=== PATIENT | female | born 1990 | race Caucasian/White ===

== ENCOUNTER → 2017-05-04 | Outpatient (CLI) | payer OTHER ==
[2017-05-04 19:21] LABS: BASO # 0.1 10^3/uL (0.0-0.2); BASO % 0.5 % (0.0-1.0); EOS # 0.2 10^3/uL (0.0-0.50); HEMATOCRIT 42.1 % (36.0-47.0); HEMOGLOBIN 14.1 g/dl (12.0-16.0); IMMATURE GRANULOCYTE # 0.1 10^3/uL (0-0); IMMATURE GRANULOCYTE % 0.5 % (0-0); LYMPH # 2.6 10^3/uL (1.5-6.5); LYMPH % 23.9 % (24.0-44.0); MEAN CORPUSCULAR HEMOGLOBIN 29.4 pg (27.0-33.0); MEAN CORPUSCULAR HGB CONC 33.5 g/dl (32.0-36.5); MEAN CORPUSCULAR VOLUME 87.7 fl (80.0-96.0); MONO # 0.6 10^3/uL (0.0-0.8); NEUTROPHILS # 7.2 10^3/uL (1.8-7.7); NEUTROPHILS % 67.1 % (36.0-66.0); PLATELET COUNT, AUTOMATED 344 10^3/uL (150-450); RED CELL DISTRIBUTION WIDTH 12.7 % (11.5-14.5); WHITE BLOOD COUNT 10.7 10^3/uL (4.0-10.0)
[2017-05-04 23:19] LABS: CHLAMYDIA DNA AMPLIFICATION NEGATIVE (NEGATIVE); GC DNA AMPLIFICATION NEGATIVE (NEGATIVE)
[2017-05-06 10:33] LABS: RUBELLA IgG QUALITATIVE IMMUNE (IMMUNE)
[2017-05-06 11:02] LABS: HIV 1&2 SCREEN CENTAUR NEGATIVE (NEGATIVE)
[2017-05-06 11:02] LABS: HEPATITIS C VIRUS ABY INDEX 0.1 INDEX (<0.8)
[2017-05-06 12:31] LABS: HBsAg Prenatal NEGATIVE (NEGATIVE)
== END ==
LOC: M SMT 13:42
DX: Z34.81 Encounter for supervision of other normal pregnancy, first trimester (principal); Z3A.10 10 weeks gestation of pregnancy
CPT/HCPCS: 86762

== ENCOUNTER → 2017-06-29 | Outpatient (CLI) | payer OTHER | LOC: M SMT 08:29 | DX: Z34.82 Encounter for supervision of other normal pregnancy, second trimester (principal); Z3A.18 18 weeks gestation of pregnancy | CPT/HCPCS: 76811 ==

== ENCOUNTER → 2017-09-30 | Outpatient (REF) | payer OTHER | LOC: M LAB REF 17:05 | DX: Z34.82 Encounter for supervision of other normal pregnancy, second trimester (principal); Z3A.00 Weeks of gestation of pregnancy not specified ==

== ENCOUNTER 2017-10-03 14:27 | Outpatient (CLI) | payer OTHER | END 2017-10-03 15:20 | disposition home or self-care (01) | LOC: M LDO 14:27 | DX: O36.8130 Decreased fetal movements, third trimester, not applicable or unspecified (principal); Z87.440 Personal history of urinary (tract) infections; Z3A.31 31 weeks gestation of pregnancy | CPT/HCPCS: 59025 ==

== ENCOUNTER → 2017-11-09 | Outpatient (REF) | payer OTHER | LOC: M LAB REF 13:30 | DX: Z34.83 Encounter for supervision of other normal pregnancy, third trimester (principal) ==

== ENCOUNTER 2017-11-23 06:19 | Inpatient (IN) | payer OTHER ==
[2017-11-23 07:08] LABS: HEMATOCRIT 35.8 % (36.0-47.0); HEMOGLOBIN 11.4 g/dl (12.0-15.5); MEAN CORPUSCULAR HGB CONC 31.8 g/dl (32.0-36.5); MEAN CORPUSCULAR VOLUME 81.5 fl (80.0-96.0); PLATELET COUNT, AUTOMATED 352 10^3/uL (150-450); RED BLOOD COUNT 4.39 10^6/uL (4.00-5.40); RED CELL DISTRIBUTION WIDTH 15.1 % (11.5-14.5); WHITE BLOOD COUNT 13.8 10^3/uL (4.0-10.0)
[2017-11-23] MEDS: PENICILLIN G POTASSIUM IV 5 MU in D5W MINI-BAG PLUS 100 ML IV (08:07)
[2017-11-23] MEDS: LACTATED RINGER'S 1000 ML IV (08:07)
[2017-11-23] MEDS: miSOPROStol 50 MCG 1/2 TAB (S0191) SL (08:38)
[2017-11-23] MEDS: PENICILLIN G POTASSIUM IV 2.5 MU in APPROPRIATE DILUENT 1 EA IV ×2 (12:14→16:02)
[2017-11-23] MEDS: OXYTOCIN DRIP 30 UNITS in APPROPRIATE DILUENT 1 EA IV (13:35)
[2017-11-23] MEDS: LR 1,000 ML IV (16:39)
[2017-11-23] MEDS ORDERED: FENTANYL 2MCG/ML ROPIVACAINE 0.2% IN 0.9% NACL 200ML IVBAG As Ordered (16:58)
[2017-11-23] MEDS ORDERED: ePHEDrine SULFATE 25 MG/5 ML(5MG/ML) SYRINGE IV (18:00)
[2017-11-23] MEDS ORDERED: REFRIGERATOR IV KEYS XX (18:00)
[2017-11-23] MEDS ORDERED: diphenhydrAMINE INJ 50MG/ML VIAL (J1200) IV (18:00)
[2017-11-23] MEDS ORDERED: FENTANYL/ROPIVACAINE/NACL BAG 200 ML EPIDURAL (18:00)
[2017-11-23] MEDS ORDERED: EPIDURAL/PCA KEYS XX (18:00)
[2017-11-23] MEDS ORDERED: ONDANSETRON 4MG/2ML VIAL (J2405) IV (18:00)
[2017-11-23] MEDS ORDERED: EPIDURAL COMMENT XX (18:00)
[2017-11-23] MEDS ORDERED: NALOXONE INJ 0.4 MG/1 ML VIAL (J2310) IV (18:00)
[2017-11-23] MEDS ORDERED: RHOGAM 300 MCG (1500 IU) INJ (J2790) IM (19:30)
[2017-11-23] MEDS: METHYLERGONOVINE MALEATE 0.2 MG TAB PO (19:30)
[2017-11-23] MEDS ORDERED: MEASLES,MUMPS,RUBELLA VACCINE INJ (MMR-II) (90707) SC (19:30)
[2017-11-23] MEDS ORDERED: ANUSOL HC CREAM 30GM TOP (19:30)
[2017-11-23] MEDS ORDERED: DIBUCAINE 1% OINTMENT 30GM TOP (19:30)
[2017-11-23] MEDS ORDERED: MOM 30ML SUSPENSION UDC PO (19:30)
[2017-11-23] MEDS: DOCUSATE SODIUM 100 MG CAP PO (22:50)
[2017-11-24] MEDS: METHYLERGONOVINE MALEATE 0.2 MG TAB PO ×4 (03:42→18:49)
[2017-11-24] MEDS: IBUPROFEN 800 MG TAB PO ×2 (03:49→14:57)
[2017-11-24] MEDS: PRENATAL VITAMINS CHEWABLE TABLET PO (08:25)
[2017-11-24] MEDS: ACETAMINOPHEN 500 MG TAB PO ×2 (08:28→18:49)
== END 2017-11-24 20:58 | disposition home or self-care (01) | DRG 560 ==
LOC: M LDI 06:19 → M OBS 21:59
PROVIDERS: Advanced Practice Midwife
PROC: 10E0XZZ Delivery of Products of Conception, External Approach (ICD-10-PCS; principal; 2017-11-23)
PROC: 10907ZC Drainage of Amniotic Fluid, Therapeutic from Products of Conception, Via Natural or Artificial Opening (ICD-10-PCS; 2017-11-23)
PROC: 3E0P7GC Introduction of Other Therapeutic Substance into Female Reproductive, Via Natural or Artificial Opening (ICD-10-PCS; 2017-11-23)
DX: O99.824 Streptococcus B carrier state complicating childbirth (principal); Z3A.39 39 weeks gestation of pregnancy; O32.6XX0 Maternal care for compound presentation, not applicable or unspecified; Z37.0 Single live birth

== ENCOUNTER → 2019-12-20 | Outpatient (CLI) | payer OTHER ==
[~2019-12-20] MED LIST: MACR100C43 PO; MAPA500T2 PO; MOTR200T44 PO; No Historical Meds; PRENTAB9 PO; TUMS500C PO
[2019-12-20 15:55] LABS: BASO # 0.1 10^3/uL (0.0-0.2); BASO % 0.6 % (0.0-1.0); EOS # 0.2 10^3/uL (0.0-0.5); EOS % 1.9 % (0.0-3.0); HEMATOCRIT 43.1 % (36.0-47.0); HEMOGLOBIN 14.4 g/dl (12.0-15.5); LYMPH # 2.4 10^3/uL (1.5-5.0); LYMPH % 26.4 % (24.0-44.0); MEAN CORPUSCULAR HEMOGLOBIN 29.9 pg (27.0-33.0); MEAN CORPUSCULAR HGB CONC 33.4 g/dl (32.0-36.5); MEAN CORPUSCULAR VOLUME 89.6 fl (80.0-96.0); MONO # 0.5 10^3/uL (0.0-0.8); MONO % 5.4 % (0.0-5.0); NEUTROPHILS # 5.9 10^3/uL (1.5-8.5); NEUTROPHILS % 65.4 % (36.0-66.0); PLATELET COUNT, AUTOMATED 307 10^3/uL (150-450); RED BLOOD COUNT 4.81 10^6/uL (4.00-5.40)
[2019-12-20 17:27] LABS: HEPATITIS C VIRUS ABY INDEX 0.3 INDEX (<0.8); HIV 1&2 SCREEN CENTAUR NEGATIVE (NEGATIVE)
== END ==
LOC: M PLALAB 12:22
PROVIDERS: ATTEND Advanced Practice Midwife
DX: Z34.82 Encounter for supervision of other normal pregnancy, second trimester (principal)

== ENCOUNTER → 2019-12-22 | Outpatient (CLI) | payer OTHER ==
--- NOTE | 2020-01-17 13:52 | REP ---
FIRST TRIMESTER OBSTETRICAL ULTRASOUND CLINICAL: Dating and viability. TECHNIQUE: Transabdominal first trimester obstetrical ultrasound with color Doppler evaluation. FINDINGS: Ultrasound examination demonstrates single live early intrauterine . CRL of 6.2 cm corresponds to 12 weeks 5 days gestational age with estimated date of delivery 06/28/2020. heart rate equals 153 beats per minute. No gross abnormalities are identified. Cervix measures 4.1 cm in length and appears closed. Placenta is noted posteriorly and grade 0. Amniotic fluid volume is subjectively normal. Maternal ovaries are normal in appearance and vascularity. Right ovary measures 3.8 x 1.8 x 1.8 cm (RI 0.71). Left ovary measures 3.7 x 2.3 x 1.8 cm with 2 cm corpus luteum cyst (RI 0.50). IMPRESSION: Single live early intrauterine at 12 weeks 5 days gestational age. Complete anatomic assessment should be performed at 19 to 20 weeks. MTDD
== END ==
LOC: M WHC 08:39
PROVIDERS: ATTEND Advanced Practice Midwife
DX: Z34.81 Encounter for supervision of other normal pregnancy, first trimester (principal); Z3A.12 12 weeks gestation of pregnancy

== ENCOUNTER → 2020-02-01 | Outpatient (REF) | payer OTHER | LOC: M SFHCWAGY 13:38 | PROVIDERS: ATTEND Advanced Practice Midwife | DX: Z34.82 Encounter for supervision of other normal pregnancy, second trimester (principal); Z3A.00 Weeks of gestation of pregnancy not specified ==

== ENCOUNTER → 2020-02-09 | Outpatient (CLI) | payer OTHER ==
--- NOTE | 2020-02-09 13:01 | REP ---
INDICATION: ANATOMY COMPARISON: 12/22/2019 TECHNIQUE: Transabdominal obstetrical ultrasound with color Doppler evaluation. FINDINGS: Examination demonstrates a single live intrauterine in breech presentation. motion is identified by technologist. Placenta is noted posterior and grade 1 without evidence for placenta previa or abruption. Amniotic fluid volume is normal. Cervix measures 3.5 cm in length and appears closed.. Gestational age by current measurements 19 weeks 2 days with THERESA 07/03/2020. FHR equals 158 beats per minute. BPD: 4.0 cm 18 weeks 1 day HC: 16.1 cm 19 weeks 0 days AC: 13.9 cm 19 weeks 2 days FL: 3.1 cm 19 weeks 5 days HL: 3.1 cm 20 weeks 1 day HC/AC: 1.16 Estimated weight 289 grams (less than 3rdpercentile). Anatomical assessment demonstrates normal structures including choroid plexus, cavum, cerebellum/posterior fossa, facial features, lungs, diaphragm, stomach, cord insertion/three-vessel cord, kidneys/bladder, spine, and extremities. The cranium demonstrates a mildly dolichocephalic contour which is likely due to positioning and crowding. IMPRESSION: 1. Single live intrauterine in breech presentation. 2. Estimated weight below 3rd percentile and limited evaluation of the heart and cardiac ventricular outflow tracts along with questionable cranial shape warrant follow-up. <Electronically signed by Doug Guillermo > 02/09/20 [id number]
== END ==
LOC: M WHC 10:04
PROVIDERS: ATTEND Advanced Practice Midwife
DX: Z34.82 Encounter for supervision of other normal pregnancy, second trimester (principal)

== ENCOUNTER → 2020-03-27 | Outpatient (CLI) | payer OTHER | LOC: M WHC 09:54 | PROVIDERS: ATTEND Obstetrics & Gynecology | DX: Z34.92 Encounter for supervision of normal pregnancy, unspecified, second trimester (principal); Z3A.27 27 weeks gestation of pregnancy; Z53.9 Procedure and treatment not carried out, unspecified reason ==

== ENCOUNTER → 2020-03-30 | Outpatient (CLI) | payer OTHER ==
--- NOTE | 2020-03-30 17:17 | REP ---
INDICATION: F/U ANATOMY. COMPARISON: Comparison study February 09, 2020.. TECHNIQUE: Transabdominal obstetric sonography. FINDINGS: Scanning through the gravid uterus demonstrates a viable single intrauterine gestation in cephalic lie. motion is observed and heart rate is recorded at 138 beats per minute. A posterior placenta is seen, grade 1, without evidence of placenta previa. Amniotic fluid is subjectively normal. Closed cervical length is measured at 3.5 cm transabdominally. No extrauterine abnormality is observed. Amniotic fluid is subjectively normal. Four-chamber heart and left and right ventricular outflow tract views were achieved today and are felt to be normal.. Biometry chart: BPD 6.4 cm, 26 weeks 0 days Head circumference 24.8 cm, 26 weeks 6 days Abdominal circumference 22.1 cm, 26 weeks 3 days Femur length 5.2 cm, 27 weeks 5 days Humeral length 4.7 cm, 27 weeks 4 days HC AC ratio normal 1.12 Cephalic index normal 0.71 Estimated weight 1004 g, 2 lb 3 oz, 18th percentile for 27 weeks 4 days IMPRESSION: Viable single intrauterine gestation at 27 weeks 0 days by today's composite sonographic criteria. THERESA by today's sonography June 29, 2020. No complication identified. Expected gestational age estimate based on prior sonography is 27 weeks 4 days. THERESA by prior sonography June 25, 2020. In conjunction with the prior study, anatomic survey is felt to be complete. <Electronically signed by Timothy Carrion > 03/30/20 [id number]
== END ==
LOC: M WHC 12:40
PROVIDERS: ATTEND Obstetrics & Gynecology
DX: Z34.92 Encounter for supervision of normal pregnancy, unspecified, second trimester (principal); Z3A.27 27 weeks gestation of pregnancy

== ENCOUNTER → 2020-05-30 | Outpatient (REF) | payer OTHER | LOC: M SFHCWAGY 16:51 | PROVIDERS: ATTEND Advanced Practice Midwife | DX: Z3A.36 36 weeks gestation of pregnancy (principal) ==

== ENCOUNTER → 2020-06-01 | Outpatient (REF) | payer OTHER ==
[2020-06-01 15:13] LABS: HEMATOCRIT 34.4 % (36.0-47.0); HEMOGLOBIN 10.7 g/dl (12.0-15.5); MEAN CORPUSCULAR HEMOGLOBIN 27.4 pg (27.0-33.0); MEAN CORPUSCULAR HGB CONC 31.1 g/dl (32.0-36.5); PLATELET COUNT, AUTOMATED 338 10^3/uL (150-450); RED BLOOD COUNT 3.91 10^6/uL (4.00-5.40); WHITE BLOOD COUNT 20.1 10^3/uL (4.0-10.0)
== END ==
LOC: M PLALAB 13:07
PROVIDERS: ATTEND Advanced Practice Midwife
DX: Z34.92 Encounter for supervision of normal pregnancy, unspecified, second trimester (principal)

== ENCOUNTER 2020-06-05 08:33 | Outpatient (CLI) | payer OTHER ==
[~2020-06-05] VITALS: Ht 165.1 cm; Wt 86.4 kg
[2020-06-05] MEDS ORDERED: PRENTAB9 PO (08:49)
[2020-06-05 08:57] VITALS: BP 101/57
--- NOTE | 2020-06-05 09:24 | IPNPDOC ---
Obstetrical Progress Note Date of Service Jun 05, 2020 Subjective 29 yo at 37 weeks presents for an attempt at ECV to triage. no complaints. Objective Vital Signs Date Time Temp Pulse Resp B/P (MAP) Pulse Ox O2 Delivery O2 Flow Rate FiO2 06/05/20 08:57 99.1 134 101/57 (72) Room Air Assessment Variability: Moderate Accelerations: Positive Decelerations: None Tocometer Contractions: No Assessment and Plan Status: Reassuring Additional Comments transabdominal ultrasound: vertex A/P 29 yo at 37 weeks presents for ECV. Pt is vertex upon presentation today discharge home fu office as scheduled JAK SOUZA MD Jun 05, 2020 09:23
== END 2020-06-05 10:07 | disposition home or self-care (01) ==
LOC: M LDO 08:33
PROVIDERS: ATTEND Obstetrics & Gynecology
DX: O26.893 Other specified pregnancy related conditions, third trimester (principal); Z3A.37 37 weeks gestation of pregnancy

== ENCOUNTER 2020-06-18 13:32 | Inpatient (IN) | payer OTHER ==
[2020-06-18] VITALS (27 sets, daily range): BP systolic 87–135; BP diastolic 49–74
[~2020-06-18] VITALS: Ht 165.1 cm; Wt 87.2 kg
[2020-06-18] MEDS ORDERED: LACTATED RINGER'S 1000 ML IV STA (14:42)
--- NOTE | 2020-06-18 15:05 | HPEPDOC ---
Obstetrical History & Physical General Date of Admission Jun 18, 2020 at 13:32 Primary Care Physician: YASMIN IVEY CNM History of Present Illness Chelsey is a 29-year-old female who is a with an THERESA of 06/25/20 based off of her LMP and consistent with her first trimester ultrasound. She initiated care in her first trimester of with [facility]. Her has been complicated by an early ultrasound showing a growth in <3% that was resolved at 24 weeks at 18%. She presented to L&D for an elective induction of labor. She reports occasional contractions and active movement. She denies leaking of fluid or vaginal bleeding. Chief Complaint: Induction of labor Information Provided By: Patient Age: 29 : 6 Term: 5 Pre-term: 0 Abortions: 0 Livin Care Care: Good Care Dating Final EDC: Jun 25, 2020 Final EDC by: LMP EGA at Admission: 39 Antepartum Course Diagnos(e)s History of Covid-19 during Height (inches): 65 Admission Weight (lbs.): 191 Past Medical History Past Obstetrical History #1: Past Obstetrical History: Primgravida Date of Delivery: Dec 28, 2009 Gestation: 40 Type of Delivery: Spontaneous Vaginal Del. Sex of Infant: Male (7 lbs 9 oz) Complications: No Past Obstetrical History #2: Past Obstetrical History: Multigravida Date of Delivery: May 25, 2011 Gestation: 40 Type of Delivery: Spontaneous Vaginal Del. Sex of Infant: Female (6 lbs 12 oz) Complications: No Past Obstetrical History #3: Past Obstetrical History: Multigravida Date of Delivery: Jan 23, 2014 Gestation: 40 Type of Delivery: Spontaneous Vaginal Del. Sex of : Male (6.6 lbs) Complications: No Past Obstetrical History #4: Past Obstetrical History: Multigravida Date of Delivery: Aug 13, 2014 Gestation: 40 Type of Delivery: Spontaneous Vaginal Del. Sex of : Female (6.2 lbs) Complications: Yes (PPH) Past Obstetrical History #5: Past Obstetrical History: Multigravida Date of Delivery: Dec 03, 2017 Gestation: 39 Type of Delivery: Spontaneous Vaginal Del. Sex of : Male (7.4 lbs) Complications: Yes (PPH) Past Medical History Surgical History: Other (cystectomy right ovary ) Family History Significant Family History: No pertinent family hx Social History Marital Status: Single Family situation: Spouse/partner home Psychosocial History: No pertinent psych hx * Smoker: non-smoker Alcohol: Denies Drugs: denies Abuse Violence Screening Have you been hit/kicked/slapp: No Have you been sexually assault: No Allergies Coded Allergies: No Known Drug Allergies (Verified Allergy, Unknown, 06/18/20) Medications Scheduled No.137/Iron/Folic Acd ( Vitamin Tablet) 1 Tab Tab, 1 TAB PO DAILY No.137/Iron/Folic Acd ( Vitamin Tablet) 1 Each Tablet, 1 TAB PO DAILY Physical Examination Physical Examination GENERAL: Alert and oriented times three. ABDOMEN: Gravid and non-tender to touch. FETUS: Is vertex (VTX) by sterile vaginal examination (SVE), fetus is vertex (VTX) by Derick. EFW 3200 grams. HEART RATE: Regular rate with audible murmur. LUNGS: Clear to auscultation (CTA). EXTREMITIES: No edema. No clonus. Deep tendon reflexes (DTRs) + 2. Vital Signs/I&O Vital Signs Date Time Temp Pulse Resp B/P (MAP) Pulse Ox O2 Delivery O2 Flow Rate FiO2 06/18/20 13:47 98.7 109 18 135/62 (86) Laboratory Data 24H LABS Laboratory Tests 2 06/18/20 13:37: Serology Scanned Report Hepatitis B Testing Pertinent Laboratoy Data Blood Type: O+ RBC Antibody Screen: Negative HIV: Negative Hepatitis B: Negative Hepatitis C: Negative Rapid Plasma Reagin: Nonreactive Rubella: Immune Chlamydia/Gonorrhea: Negative Group B Streptococcus: Negative Glucose Tolerance Test: 130 Vaginal Examination Dilation: 1cm Effacement: other (75%) Station: -2 Cervical Consistency: Soft Cervical Position: Anterior Position: Vertex (occiput) Assessment Heart Rate (FHR): 135 Variability: Increased Accelerations: Positive Decelerations: None Tocometer Contractions: Yes Frequency: irregular Multi-drug resistant Organism: No history of MDRO Assessment/Plan Assessment IUP at 39 weeks gestation elective induction of labor Category I FHR tracing GBS negative Plan Admit to L&D. OOB ad blanca. Diet: clears. Group B Streptococcus (GBS) negative. Labs and intravenous (IV) per unit protocol. Counseled on arreola bulb and IV Pitocin for induction of labor. Arreola bulb placed with 60 cc of NS. Patient tolerated well. IB Pitocin to be st arted per order. Lactated Ringers (LR): Bolus 800 mL, then at 125 mL/hr. Anticipate cervical ripening and cervical change. C-S as appropriate. YASMIN IVEY CNM Jun 18, 2020 15:05
[2020-06-18] MEDS ORDERED: OXYTOCIN DRIP 30 UNITS in IV 1 EA IV SCH (15:30)
[2020-06-18] MEDS: LR 1,000 ML IV SCH (15:42)
[2020-06-18 15:50] LABS: HEMATOCRIT 32.1 % (36.0-47.0); HEMOGLOBIN 10.2 g/dl (12.0-15.5); MEAN CORPUSCULAR HEMOGLOBIN 26.9 pg (27.0-33.0); MEAN CORPUSCULAR HGB CONC 31.8 g/dl (32.0-36.5); MEAN CORPUSCULAR VOLUME 84.7 fl (80.0-96.0); PLATELET COUNT, AUTOMATED 363 10^3/uL (150-450); RED BLOOD COUNT 3.79 10^6/uL (4.00-5.40); WHITE BLOOD COUNT 14.9 10^3/uL (4.0-10.0)
[2020-06-18] MEDS ORDERED: FENTANYL 2MCG/ML ROPIVACAINE 0.2% IN 0.9% NACL 100ML IVBAG As Ordered ONE (18:29)
[2020-06-18] MEDS ORDERED: LACTATED RINGER'S 1000 ML IV PRN (19:05)
[2020-06-18] MEDS ORDERED: NALOXONE INJ 0.4MG/1ML VIAL (J2310 PER 1MG) IV PRN (19:05)
[2020-06-18] MEDS ORDERED: REFRIGERATOR IV KEYS XX PRN (19:05)
[2020-06-18] MEDS ORDERED: EPIDURAL/PCA KEYS XX PRN (19:05)
[2020-06-18] MEDS ORDERED: EPIDURAL COMMENT XX SCH (19:05)
[2020-06-18] MEDS ORDERED: diphenhydrAMINE 50MG/ML VIAL (J1200) IV PRN (19:05)
[2020-06-18] MEDS ORDERED: ePHEDrine SULFATE 25 MG/5 ML(5MG/ML) SYRINGE IV PRN (19:05)
[2020-06-18] MEDS ORDERED: ONDANSETRON 4MG/2ML VIAL IV PRN (19:05)
[2020-06-18] MEDS: FENTANYL/ROPIVACAINE/NACL BAG 100 ML EPIDURAL SCH (19:07)
--- NOTE | 2020-06-18 22:58 | IPNPDOC ---
Obstetrical Progress Note Date of Service Jun 18, 2020 Subjective Patient reports feeling increased vaginal pressure. Comfortable with epidural. Objective Vital Signs Date Time Temp Pulse Resp B/P (MAP) Pulse Ox O2 Delivery O2 Flow Rate FiO2 06/18/20 20:19 102 16 113/72 (86) 06/18/20 17:24 98.4 Assessment Heart Rate (FHR): 130 Variability: Moderate Accelerations: Positive Decelerations: None Heart Rate Tracing: Category I Tocometer Contractions: Yes Frequency: regular Sterile Vaginal Examination Dilation: 5 cm (5-6 cm) Effacement (%): other (75%) Station: -1 (with contraction but ballotable without contraction) Cervical Consistency: Soft Cervical Position: Anterior Postion/Presentation: Cephalic presentation Assessment and Plan Age: 29 : 6 Term: 5 Weeks & Days 39 Status: Reassuring Group B Streptococcus: Negative Anticipate: Vaginal Delivery Additional Comments IV Pitocin is at 10 mu/min. Topete bulb fell out about 2.5 hours ago. YASMIN IVEY CNM Jun 18, 2020 22:58
[2020-06-18] MEDS ORDERED: CALCIUM CARBONATE 500 MG CHEW U/D PO ONE (23:45)
[2020-06-19] VITALS (15 sets, daily range): BP systolic 90–120; BP diastolic 48–74
--- NOTE | 2020-06-19 02:34 | IPNPDOC ---
Obstetrical Progress Note Date of Service Jun 19, 2020 Subjective Patient reports pressure but comfortable with her epidural. Objective Vital Signs Date Time Temp Pulse Resp B/P (MAP) Pulse Ox O2 Delivery O2 Flow Rate FiO2 06/18/20 20:19 102 16 113/72 (86) 06/18/20 17:24 98.4 Assessment Heart Rate (FHR): 140 Variability: Moderate Accelerations: Positive Decelerations: None Heart Rate Tracing: Category I Tocometer Contractions: Yes Frequency: regular Sterile Vaginal Examination Dilation: 6 cm Effacement (%): other (75%) Station: -2 Cervical Consistency: Soft Cervical Position: Anterior Postion/Presentation: Cephalic presentation Assessment and Plan Age: 29 : 6 Term: 5 Livin EGA at Admission: 39 Weeks & Days 39.1 weeks Status: Reassuring Group B Streptococcus: Negative Anticipate: Vaginal Delivery Additional Comments Attempted to rupture patient after minimal cervical change after discussing and obtaining verbal consent from patient. Checked cervix again and only felt a bulging bag without cephalic presentation. Bedside ultrasound done showing fetus transverse with head to maternal left. Reviewed options with patient and IV Pitocin turned off. Patient reported that the baby was very active and thinks that he already moved prior to the call to Dr. Kirkland was even made. US repeated and fetus cephalic again. Decision made with patient to bind abdomen then attempt to rupture. Fetus continued to stay cephalic and AROM of a large amount of clear fluid was noted. IV Pitocin turned back on. YASMIN IVEY CNM Jun 19, 2020 02:34
[2020-06-19] MEDS: LR 1,000 ML IV SCH (02:42)
[2020-06-19] MEDS: FENTANYL/ROPIVACAINE/NACL BAG 100 ML EPIDURAL SCH (03:11)
[2020-06-19] MEDS ORDERED: TRANEXAMIC ACID 100 MG/ML 10ML VIAL As Ordered ONE (07:08)
[2020-06-19] MEDS ORDERED: METHYLERGONOVINE MALEATE 0.2 MG/ML VIAL (J2210) IM STA (07:18)
[2020-06-19] MEDS ORDERED: OXYTOCIN DRIP 30 UNITS in IV 1 EA IV SCH (07:44)
[2020-06-19] MEDS ORDERED: METHYLERGONOVINE MALEATE 0.2 MG TAB PO PRN (07:45)
[2020-06-19] MEDS ORDERED: MEASLES,MUMPS,RUBELLA VACCINE INJ (MMR-II) (90707) SC SCH (07:45)
[2020-06-19] MEDS ORDERED: RHOGAM 300 MCG (1500 IU) INJ (J2790) IM SCH (07:45)
[2020-06-19] MEDS ORDERED: ANUSOL HC CREAM 30GM TOP PRN (07:45)
[2020-06-19] MEDS ORDERED: ACETAMINOPHEN TAB 650MG DOSE (2X325MG) PO PRN (07:45)
[2020-06-19] MEDS ORDERED: DOCUSATE SODIUM 100MG CAPSULE PO PRN (07:45)
[2020-06-19] MEDS ORDERED: IBUPROFEN 600MG TAB PO PRN (07:45)
[2020-06-19] MEDS ORDERED: DIBUCAINE 1% OINTMENT 30GM TOP PRN (07:45)
[2020-06-19] MEDS ORDERED: ACETAMINOPHEN 500 MG TAB PO PRN (07:45)
[2020-06-19] MEDS ORDERED: medroxyPROGESTERone ACET IM SUSP 150 MG/ML VIAL (J1050) IM ONE (07:50)
--- NOTE | 2020-06-19 08:14 | DNPDOC ---
[facility] Delivery Note Delivery Note DATE OF DELIVERY: 06/19/20 at 0710 PREDELIVERY DIAGNOSIS: 39.1 weeks' gestation and induction of labor. POST DELIVERY DIAGNOSIS: Delivered. PROCEDURE: Spontaneous vaginal delivery. AUTOMATIC DRY STARCH OPERATOR: Yasmin Burrows CNM, LIZBETH ANESTHESIA: epidural. ESTIMATED BLOOD LOSS: 100 mL. FINDINGS: 7 pounds 1 ounces; 3200 grams; male infant, Score 9/9, nuchal cord times 1 tight. DELIVERY SUMMARY: Chelsey is a 29-year-old female who is now a who presented to L&D for an elective induction of labor. She received a arreola bulb and IV Pitocin for induction of labor. Chelsey requested an epidural for pain management. She progressed to fully dilated at 0704 and pushed to a living male in the CRISTO position with restitution to LOT. A tight nuchal cord was noted and not reduced. Anterior shoulder delivered with ease and the corpus immediately followed via [place]. The baby was placed on the maternal abdomen active and crying with stimulation. The cord was clamped x2 after pulsation ceased and cut by the FOB. A 3-vessel cord was noted. The placenta delivered spontaneous and intact. Uterine hemostasis was achieved via rapid infusion of IV Pitocin, fundal massage and IM Methergine (due to history of history of hemorrhage x2). The vagina, perineum, and cervix was inspected and found to be intact. She plans for formula feed her . They haven't decided on a name at this time. Both mom and baby are in stable condition. All counts of instruments and sponges are correct. YASMIN BURROWS CNM Jun 19, 2020 08:14
[2020-06-19] MEDS: PRENATAL VITAMINS CHEWABLE TABLET PO SCH (09:00)
[2020-06-19] MEDS: IBUPROFEN 800 MG TAB PO PRN ×2 (09:33→20:39)
[2020-06-20 06:17] VITALS: BP 109/53
--- NOTE | 2020-06-20 07:00 | IPNPDOC ---
Progress Note Date of Service: Jun 20, 2020 Day#: 1 Progress Note PPD 1 SUBJECT: Chelsey is a 29yo s/p uncomplicated after undergoing elective IOL at term, doing well day # 1. She has been ambulating, voiding spontaneously without issue and tolerating regular diet. Breast feeding without issue. Reports lochia is like a normal period. No f/c/n/v/CP/SOB. Desires depoprovera prior to discharge for contraception ( plans vasectomy as well). OBJECTIVE: VITAL SIGNS: Within normal limits, afebrile. Alert and oriented times three. Abdomen: Fundus firm at U-2. Soft, NTTP. Extremities: no pain with palpation of calves ASSESSMENT: Chelsey is a 29yo s/p uncomplicated after undergoing elective IOL at term, doing well day # 1. Vitals within normal limits, afebrile, hemodynamically stable with no evidence of infection. PLAN: 1. Discharge to home today. 2. Tylenol and Motrin for pain. 3. Encourage breast feeding and ambulation. 4. Depoprovera for contraception 5. Routine PP visit in 6 weeks in clinic. 6. Discussed return precautions at length. Matilda Hamilton MD VS, I&O, 24H, Fishbone Vital Signs/I&O Vital Signs Date Time Temp Pulse Resp B/P (MAP) Pulse Ox O2 Delivery O2 Flow Rate FiO2 06/20/20 06:17 98.2 64 18 109/53 (71) I&O- Last 24 Hours up to 6 AM 06/20/20 06:00 Intake Total 1200 ml Output Total 1550 ml Balance -350 ml Matilda Hamilton MD Jun 20, 2020 07:00
[2020-06-20] MEDS ORDERED: DOK1CAP7 PO (07:02)
[2020-06-20] MEDS ORDERED: IBUP80TA PO (07:02)
--- NOTE | 2020-06-20 07:05 | DS.PDOC ---
Discharge Summary General Date of Admission Jun 18, 2020 at 13:32 Date of Discharge 06/20/20 Discharge Summary PROCEDURES PERFORMED DURING STAY: spontaneous vaginal delivery ADMITTING DIAGNOSES: 1. elective IOL at term DISCHARGE DIAGNOSES: 1. elective IOL at term COMPLICATIONS/CHIEF COMPLAINT: Induction. HISTORY OF PRESENT ILLNESS/HOSPITAL COURSE: Chelsey is a 29yo s/p uncomplicated after undergoing elective IOL at term, doing well day # 1. She has had a benign course. At time of discharge, vitals were within normal limits, afebrile, hemodynamically stable with no evidence of infection. DISCHARGE MEDICATIONS: Please see below. ALLERGIES: Please see below. PHYSICAL EXAMINATION ON DISCHARGE: VITAL SIGNS: Within normal limits, afebrile. Alert and oriented times three. Abdomen: Fundus firm at U-2. Soft, NTTP. Extremities: no pain with palpation of calves LABORATORY DATA: Please see below. DIET: regular DISCHARGE PLAN/INSTRUCTIONS: 1. Discharge to home today. 2. Tylenol and Motrin for pain. 3. Encourage breast feeding and ambulation. 4. Depoprovera for contraception 5. Routine PP visit in 6 weeks in clinic. 6. Discussed return precautions at length. DISCHARGE CONDITION: Stable TIME SPENT ON DISCHARGE: Greater than 20 minutes. Vital Signs/I&Os Vital Signs Date Time Temp Pulse Resp B/P (MAP) Pulse Ox O2 Delivery O2 Flow Rate FiO2 06/20/20 06:17 98.2 64 18 109/53 (71) I&O- Last 24 Hours up to 6 AM 06/20/20 06:00 Intake Total 1200 ml Output Total 1550 ml Balance -350 ml Discharge Medications Scheduled No.137/Iron/Folic Acd ( Vitamin Tablet) 1 Tab Tab, 1 TAB PO DAILY, (Reported) No.137/Iron/Folic Acd ( Vitamin Tablet) 1 Each Tablet, 1 TAB PO DAILY, (Reported) Scheduled PRN Docusate Sodium (Dok) 100 Mg Capsule, 100 MG PO Q12H PRN for CONSTIPATION Ibuprofen (Ibuprofen) 800 Mg Tablet, 800 MG PO Q8HP PRN for PAIN LEVEL 6-10 Allergies Coded Allergies: No Known Drug Allergies (Verified Allergy, Unknown, 06/18/20) Matilda Hamilton MD Jun 20, 2020 07:05
[2020-06-20] MEDS ORDERED: medroxyPROGESTERone ACET IM SUSP 150 MG/ML VIAL (J1050) IM ONE (09:00)
[2020-06-20] MEDS: PRENATAL VITAMINS CHEWABLE TABLET PO SCH (09:21)
== END 2020-06-20 11:13 | disposition home or self-care (01) | DRG 560 ==
LOC: M LDI 13:32 → M OBS 06-19 09:17
PROVIDERS: ADMIT Advanced Practice Midwife; ATTEND Advanced Practice Midwife
PROC: 10E0XZZ Delivery of Products of Conception, External Approach (ICD-10-PCS; principal; 2020-06-18)
PROC: 3E033VJ Introduction of Other Hormone into Peripheral Vein, Percutaneous Approach (ICD-10-PCS; 2020-06-18)
PROC: 10907ZC Drainage of Amniotic Fluid, Therapeutic from Products of Conception, Via Natural or Artificial Opening (ICD-10-PCS; 2020-06-19)
DX: O80 Encounter for full-term uncomplicated delivery (principal); Z37.0 Single live birth; Z3A.39 39 weeks gestation of pregnancy

== ENCOUNTER → 2020-08-31 | Outpatient (REF) | payer OTHER ==
[~2020-08-31] MED LIST changes: +DOK1CAP7 PO; +IBUP80TA PO
== END ==
LOC: M SFHCWAGY 17:18
PROVIDERS: ATTEND Advanced Practice Midwife
DX: Z12.4 Encounter for screening for malignant neoplasm of cervix (principal); N89.8 Other specified noninflammatory disorders of vagina

== ENCOUNTER → 2022-04-10 | Outpatient (REF) | payer OTHER ==
[~2022-04-10] MED LIST changes: +DOK1CAP4 PO; -DOK1CAP7 PO
[2022-04-10 17:10] LABS: GC DNA AMPLIFICATION NEGATIVE (NEGATIVE)
== END ==
LOC: M SFHCWAGY 14:23
PROVIDERS: ATTEND Advanced Practice Midwife
DX: R35.0 Frequency of micturition (principal); Z11.3 Encounter for screening for infections with a predominantly sexual mode of transmission

== ENCOUNTER → 2025-02-24 | Outpatient (CLI) | payer OTHER ==
[2025-02-24 13:25] LABS: PLATELET COUNT, AUTOMATED 348 10^3/uL (150-450)
[2025-02-24 14:01] LABS: HIV 1&2 SCREEN NEGATIVE (NEGATIVE)
[2025-02-24 14:09] LABS: HEPATITIS C VIRUS ABY INDEX < 0.02 INDEX (<0.8)
[2025-02-24 14:49] LABS: Trichomonas vaginalis (AMP) NOT DETECTED (NEGATIVE)
[2025-02-24 15:12] LABS: GC DNA AMPLIFICATION NEGATIVE (NEGATIVE)
== END ==
LOC: M PLALAB 10:45
PROVIDERS: ATTEND Advanced Practice Midwife
DX: O09.41 Supervision of pregnancy with grand multiparity, first trimester (principal); Z3A.11 11 weeks gestation of pregnancy